=== PATIENT | female | born 1950 | race Caucasian/White ===

== ENCOUNTER → 2018-01-26 | Outpatient (CLI) | payer BC | LOC: BRMIMAGING 09:43 | PROVIDERS: ATTEND Internal Medicine Endocrinology, Diabetes & Metabolism | DX: Z13.820 Encounter for screening for osteoporosis (principal); M81.0 Age-related osteoporosis without current pathological fracture ==

== ENCOUNTER → 2018-02-12 | Outpatient (CLI) | payer BC | LOC: FIMAGING 13:10 | PROVIDERS: ATTEND Internal Medicine Endocrinology, Diabetes & Metabolism | DX: R94.6 Abnormal results of thyroid function studies (principal); E83.52 Hypercalcemia | CPT/HCPCS: 78070; A9500 ==

== ENCOUNTER → 2018-02-21 | Outpatient (CLI) | payer BC ==
[~2018-02-21] MED LIST: GADOBUTROL 10 ML VIAL IVP ONE
== END ==
LOC: FIMAGING 07:26
PROVIDERS: ATTEND Internal Medicine Endocrinology, Diabetes & Metabolism
DX: D43.2 Neoplasm of uncertain behavior of brain, unspecified (principal); G93.9 Disorder of brain, unspecified
CPT/HCPCS: A9585

== ENCOUNTER → 2018-03-02 | Outpatient (CLI) | payer BC | LOC: BRMIMAGING 14:56 | PROVIDERS: ATTEND Internal Medicine Endocrinology, Diabetes & Metabolism | DX: I80.01 Phlebitis and thrombophlebitis of superficial vessels of right lower extremity (principal) | CPT/HCPCS: 93971-PO ==

== ENCOUNTER 2018-03-26 07:09 | Inpatient (IN) | payer BC ==
[2018-03-26] MEDS ORDERED: ACETAMINOPHEN 500 MG TAB PO ONE (07:28)
[2018-03-26] MEDS ORDERED: ceFAZolin 2 GM/SWFI 2 GM/20 ML SYR IVP ONE (07:28)
[2018-03-26] MEDS ORDERED: DEXAMETHASONE 10 MG/ML VIAL IVP ONE ×2 (07:28→09:45)
[2018-03-26] MEDS ORDERED: LIDOCAINE 1% 2 ML INJ ID PRN (08:35)
[2018-03-26] MEDS ORDERED: LR 1,000 ML IV ONE (08:35)
[2018-03-26 09:05] LABS: PLATELET COUNT 168 10^3/uL (150-400)
[2018-03-26] MEDS ORDERED: GADOBUTROL 10 ML VIAL IVP ONE (09:35)
[2018-03-26] MEDS ORDERED: ACETAMINOPHEN 500 MG TAB ONE (13:10)
[2018-03-26] MEDS: FAMOTIDINE 20 MG TAB PO SCH (13:12)
[2018-03-26] MEDS ORDERED: THROMBIN (BOVINE) 5,000 UNIT VIAL TP ONE ×2 (15:13→18:06)
[2018-03-26] MEDS ORDERED: CHLORHEXIDINE GLUC HIBICLENS 118 ML BTL TP ONE (15:13)
[2018-03-26] MEDS ORDERED: BACITRACIN ZINC 14.2 GM OINTTUBE TP ONE (15:13)
[2018-03-26] MEDS ORDERED: BUPIVACAINE 0.25% 30 ML SDV ONE (15:13)
[2018-03-26] MEDS ORDERED: SURGIFLO MATRIX KIT WITH THROMBIN 8 ML TP ONE ×2 (15:13→18:03)
[2018-03-26] MEDS ORDERED: MANNITOL 20% 100 GM/500 ML BAG IV ONE (15:13)
[2018-03-26] MEDS ORDERED: GENTAMICIN SULFATE 80 MG/2 ML VIAL ONE ×3 (15:14→18:52)
[2018-03-26] MEDS ORDERED: HYDROGEN PEROXIDE 473 ML BOTTLE TP ONE (15:14)
[2018-03-26] MEDS ORDERED: AVITENE POWDER 1 GM JAR TP ONE (15:14)
[2018-03-26] MEDS ORDERED: POVIDONE-IODINE 30 GM OINTTUBE TP ONE (15:14)
--- NOTE | 2018-03-26 16:03 | PDANEPAE ---
ANE History of Present Illness 67 yo with frontal tumor ANE Past Medical History - Cardiovascular History Hx Hypertension: No Hx Arrhythmias: No Hx Chest Pain: No Hx Coronary Artery / Peripheral Vascular Disease: No Hx CHF / Valvular Disease: No Hx Palpitations: No - Pulmonary History Hx COPD: No Hx Asthma/Reactive Airway Disease: Yes Hx Recent Upper Respiratory Infection: No Hx Oxygen in Use at Home: No Hx Sleep Apnea: No Sleep Apnea Screening Result - Last Documented: Negative - Neurologic History Hx Cerebrovascular Accident: No Hx Seizures: No Hx Dementia: No - Endocrine History Hx Diabetes: No - Renal History Hx Renal Disorders: No - Liver History Hx Hepatic Disorders: No - Neurological & Psychiatric Hx Hx Neurological and Psychiatric Disorders: Yes Neurological / Psychiatric History Comment: DEPRESSION,ANXIETY - Cancer History Hx Cancer: Yes Cancer History Comment: SKIN,BILAT MASTECTOMY WITH LYMPH NODE REMOVAL ON RIGHT. - Congenital Disorder History Hx Congenital Disorders: No - GI History Hx Gastrointestinal Disorders: No - Other Health History Other Health History: RIGHT EAR PAIN RADIATES TO JAW. - Chronic Pain History Chronic Pain: No - Surgical History Prior Surgeries: BILAT MASTECTOMY,BACK FLAP SURGERY,. TORE ONE FLAP. RE- ATACHED BACK FLAP. SINUS SX,. SKIN CA REMOVED ANE Review of Systems Review of systems is: negative Review of Systems: - Exercise capacity METS (RN): 4 METS ANE Patient History - Allergies Allergies/Adverse Reactions: aspirin Allergy (Verified 03/22/18 17:21) Abdominal Pain azithromycin Allergy (Verified 03/22/18 17:21) Hives - Home Medications Home Medications: Alendronate Sodium [Fosamax 70 MG (*)] 70 mg PO FR@0700 03/25/18 [Last Taken Unknown] Escitalopram Oxalate [Lexapro] 30 mg PO DAILY 03/25/18 [Last Taken Unknown] Fexofenadine HCl [Marlena Allergy] 60 mg PO DAILY 03/25/18 [Last Taken Unknown] Herbals/Supplements -Info Only 1 ea PO DAILY 03/25/18 [Last Taken Unknown] Levothyroxine [Synthroid 75 mcg (*)] 75 mcg PO SUMOTUWETH@03/25/18 [Last Taken Unknown] Levothyroxine [Synthroid 75 mcg (*)] 150 mcg PO WARREN@03/25/18 [Last Taken Unknown] Olopatadine HCl [Pazeo] 1 drop EACHEYE DAILY 03/25/18 [Last Taken Unknown] buPROPion XL [Wellbutrin Xl] 150 mg PO DAILY 03/25/18 [Last Taken Unknown] valACYclovir [Valtrex (*)] 500 mg PO DAILY 03/25/18 [Last Taken Unknown] - NPO status NPO Status: no food or drink >8 hours NPO Since - Liquids (Date): 03/25/18 NPO Since - Liquids (Time): 20:30 NPO Since - Solids (Date): 03/25/18 NPO Since - Solids (Time): 19:30 - Smoking Hx Smoking Status: Never smoked - Alcohol Use Alcohol Use: None - Family Anes Hx Family Hx Anesthesia Complications: NONE ANE Labs/Vital Signs - Labs Result Diagrams: 03/26/18 08:50 - Vital Signs Blood Pressure: 107/69 Heart Rate: 69 Respiratory Rate: 16 O2 Sat (%): 93 Height: 162.56 cm Weight: 63.503 kg ANE Physical Exam - Airway Neck exam: FROM Mallampati Score: Class 1 Mouth exam: normal dental/mouth exam - Pulmonary Pulmonary: no respiratory distress - Cardiovascular Cardiovascular: regular rate and rhythym - ASA Status ASA Status: II ANE Anesthesia Plan Anesthesia Plan: general endotracheal anesthesia
--- NOTE | 2018-03-26 16:35 | PDHPUP ---
History & Physical Update H&P update statement: This history and physical update is based on an assessment of the patient which was completed after admission or registration (within 24 hours), but prior to the surgery/procedure. H&P update: H&P reviewed & patient examined, no change in patient's condition since H&P completed
[2018-03-26] MEDS ORDERED: fentaNYL 100 MCG/2 ML INJ ONE (16:37)
[2018-03-26] MEDS ORDERED: PROPOFOL 200 MG/20 ML VIAL ONE ×2 (16:37→19:09)
[2018-03-26] MEDS ORDERED: fentaNYL 250 MCG/5 ML INJ ONE (16:51)
[2018-03-26] MEDS ORDERED: DESFLURANE 240 ML BOTTLE IH ONE (17:31)
--- NOTE | 2018-03-26 21:03 | GOP ---
[f rep st] OPERATIVE REPORT DATE OF OPERATION: 03/26/2018 SURGEON: Erich Riddle MD NEUROSURGEON: Erich Riddle MD. SCHOOL LABORATORY TECHNICIAN: GEORGE Bae. ANESTHESIA: General endotracheal. PREOPERATIVE DIAGNOSIS: Large right frontal meningioma. POSTOPERATIVE DIAGNOSIS: Large right frontal meningioma. PROCEDURE PERFORMED: 1. Right frontotemporal craniotomy. 2. Microsurgical gross total resection of a 6 cm right frontal meningioma. 3. Use of the operative microscope. 4. Stealth stereotactic neuronavigation for volumetric gross total resection of brain tumor. FINDINGS: SPECIMENS: Right frontal meningioma. ESTIMATED BLOOD LOSS: 300 cc. INDICATIONS: The patient is a 67-year-old woman who presented with an incidentally found 6 cm right frontal convexity meningioma. She was not having any clear symptoms but given the tumor size, I did recommend resection. She presents electively today for this procedure. DESCRIPTION OF PROCEDURE: After informed consent was obtained from the patient, the patient was brou ght to the operating room, was placed in a supine position on the operating table. A formal time-out was performed, identifying the patient by name, medical record number and date of . Preoperati ve antibiotics were given. The endotracheal tube was placed and general endotracheal anesthesia was smoothly induced. The patient's head was placed in the Pollock pins and turned slightly toward the left side. The Stealth was registered to the scalp and checked for accuracy using known surface land bee. The Stealth was then used to localize the area of the tumor and a large slightly angled poste rior pterional style craniotomy incision was marked. 20 cc of 0.25% Marcaine with epinephrine was in filtrated in the skin for hemostasis. The head was then prepped and draped in normal sterile fashion . A skin incision was made using a 10 blade, and the subcutaneous tissues were dissected using monop olar electrocautery. Preston clips were placed for hemostasis. The galea was opened around the circum ference of the incision, and the loose connective tissue between the temporalis muscle and the skin w as carefully dissected, reflecting the flap anteriorly. The Stealth was then used to again localize the area of the tumor and this did come under the temporalis somewhat, so the temporalis was opened a nd taken down from the superior temporal line. Once we had enough exposure, a bur hole was created a t the keyhole as well as 1 posteriorly beneath the superior temporal line and 1 bur hole was created on the coronal suture superiorly. The craniotome was then used to turn a roughly 8 cm craniotomy fla p, encompassing around the area of the tumor. After the bone was removed, copious bleeding was seen from the middle meningeal artery, which was the blood supply to the tumor. This was coagulated using bipolar electrocautery. There was still a fair amount of bleeding from the tumor which appeared to have parasitized some of the cortical vessels on the MRI. At this point, the dura was opened posteri magdiel and the dura was then carefully cut around the entire circumference of the tumor, removing about 1 cm margins from the edge of the tumor. The dura was tied together and the edges were coagulated, which stopped the majority of the bleeding. The operative microscope was then brought into the field and the remainder of procedure was performed under high-power magnification. We began by dissecting the arachnoid planes around the circumference of the tumor where it met the cortex. These planes we re fairly well dissected below at the superficial surface. The tumor was from the underlyi ng brain with cottonoid patties. Once we were dissecting a bit deeper, the tumor capsule was opened and the ultrasonic aspirator was used to internally debulk the tumor completely. We then continued t he arachnoid dissection, although this was a bit difficult due to some copious bleeding from the port ion of the tumor which was supplied by the parasitized cortical vessels. These were carefully coagul ated without disturbing the normal vasculature to the cortex and divided. We were able to dissect ar ound the entire circumference of the tumor in this manner, and the remainder of the tumor was removed en bloc. A few small bleeders from the cortex were coagulated using bipolar electrocautery. The wo und was then copiously irrigated using gentamicin irrigation and the cortex was inspected. No clear damage to the cortex or its vessels was visualized. Therefore, the cavity was then lined with Surgic el. At this point, the opening was copiously irrigated using gentamicin irrigation. The dural defec t was closed using an Integra bovine pericardium graft in a watertight fashion. At this point, the b one flap was plated back in place using Synthes titanium plates and screws. The temporalis muscle an d its fascia were closed using interrupted 2-0 Vicryl. The 10-Lebanese DARYL drain was placed in the subg aleal space, and the galea was closed using interrupted 2-0 Vicryl. The skin was closed using a runn ing 4-0 Monocryl. Sterile dressings were placed. The patient was awakened in the operating room. S he was extubated and was transferred to the PACU in stable condition. There were no operative compli cations. I was scrubbed and present for the entire procedure. All sponge and needle counts were cor rect at the end of the case. FLUIDS AND URINE OUTPUT: Per the anesthesia record. DRAINS: A subgaleal DARYL. /[id number]/MODL
[2018-03-26] MEDS ORDERED: oxyCODONE IR 5 MG TAB PO PRN (21:06)
[2018-03-26] MEDS ORDERED: ONDANSETRON 4 MG/2 ML VIAL IVP PRN (21:06)
[2018-03-26] MEDS ORDERED: ONDANSETRON 4 MG/2 ML VIAL ONE (21:17)
[2018-03-26] MEDS ORDERED: MAGNESIUM HYDROXIDE 30 ML UDCUP PO PRN (21:26)
[2018-03-26] MEDS ORDERED: niCARdipine/NACL 200 ML IV PRN (21:26)
[2018-03-26] MEDS ORDERED: PROMETHAZINE HCL 25 MG/ML INJ IVP PRN (21:26)
[2018-03-26] MEDS ORDERED: BISACODYL 10 MG SUPP PR PRN (21:26)
[2018-03-26] MEDS ORDERED: ONDANSETRON DISINTEGRATING 4 MG TAB PO PRN (21:26)
[2018-03-26] MEDS ORDERED: HYDROCODONE/APAP 5/325 TAB PO PRN (21:26)
[2018-03-26] MEDS ORDERED: diphenhydrAMINE 25 MG CAP PO PRN (21:26)
[2018-03-26] MEDS ORDERED: POLYETHYLENE GLYCOL 3350 17 GM PKT PO PRN (21:26)
[2018-03-26] MEDS ORDERED: LACTULOSE 20 GM/30 ML UDCUP PO PRN (21:26)
[2018-03-26] MEDS ORDERED: NS W/ 20 KCl/L 1,000 ML IV SCH (21:30)
[2018-03-26] MEDS ORDERED: *MD ORDERING ONLY-DEXAMETHASONE TAPER PO SCH (21:30)
--- NOTE | 2018-03-26 21:59 | POSTOPPROG ---
Post Op Note Date of Operation: 03/26/18 Surgeon: Erich Riddle Product Marketing Coordinator: Tiny Karimi Anesthesia: GET(General Endotracheal) Pre-op Diagnosis: Right frontal brain mass Post-op Diagnosis: same Procedure: Right frontal craniotomy for resection of right frontal brain mass Inf/Abcess present in the surg proc area at time of surgery?: No Depth: Organ Space EBL: 100-500 Drains: Jed Velez (DARYL Subgaleal) SOAP Progress Note Assessment/Plan: Assessment: Plan: 03/26/18 21:54 S: Patient in SDU. Waking up from surgery O: NAD,VSS FOllowing commands, speech fluent CN II-XII grossly intact PERRL, EOMI POWERS X 4 equally Incision c/d/i DARYL X 1 to full suction A: 67 yo female sp right frontal craniotomy for resection of large right frontal brain mass. Suspected meningioma P: -Admit to SDU -Q2 hours neuro checks -SBP < 140 -Postop MRI in am -7 day Decadron taper starting at 4mg q6 -PT/OT/MEDICINE AND HEALTH SERVICE MANAGER -May shower tomorrow -DARYL Subgaleal to full suction -DVT: TEDs, SCDs, Subq Hep POD #2 if still in house Objective: Vital Signs Temp Pulse Resp BP Pulse Ox 37.2 C 90 12 97/56 L 100 03/26/18 20:35 03/26/18 21:00 03/26/18 21:00 03/26/18 21:00 03/26/18 21:00 Laboratory Results 03/26/18 16:40 03/25/18 03/26/18 03/27/18 05:59 05:59 05:59 Output Total 110 Balance -110
[2018-03-26] MEDS: ACETAMINOPHEN 325 MG TAB PO PRN (23:03)
[2018-03-26] MEDS: DEXAMETHASONE 4 MG TAB PO SCH (23:04)
[2018-03-27] MEDS ORDERED: POTASSIUM Cl (KCl) 20 MEQ in NS 1,000 ML IV SCH (01:00)
[2018-03-27] MEDS: LEVOTHYROXINE 75 MCG TAB PO SCH (05:16)
[2018-03-27] MEDS: DEXAMETHASONE 4 MG TAB PO SCH ×4 (05:16→21:27)
[2018-03-27] MEDS: ALBUTEROL 60 PUFFS/8 GM MDI IH PRN ×3 (06:20→21:27)
--- NOTE | 2018-03-27 08:36 | PDMN ---
Medical Necessity Medical necessity: [facility] [place] [id number] crani[place], supratentorial 3 days : R frontotemporal craniotomy, Microsurgical gross total resection of 6 cm R frontal meningioma..
[2018-03-27] MEDS ORDERED: valACYclovir 500 MG TAB PO SCH (09:00)
[2018-03-27] MEDS ORDERED: buPROPion XL 150 MG TAB PO SCH (09:00)
[2018-03-27] MEDS ORDERED: ESCITALOPRAM OXALATE 10 MG TAB PO SCH (09:00)
[2018-03-27] MEDS ORDERED: OLOPATADINE HCL EACHEYE SCH (09:00)
[2018-03-27] MEDS: ACETAMINOPHEN 325 MG TAB PO PRN ×2 (09:26→21:30)
[2018-03-27] MEDS: SENNOSIDES/DOCUSATE SODIUM TAB PO SCH ×2 (09:28→21:27)
[2018-03-27] MEDS: FAMOTIDINE 20 MG TAB PO SCH (09:28)
--- NOTE | 2018-03-27 09:31 | NEUSURGPN ---
Assessment/Plan: A: 67 yo female sp right frontal craniotomy for resection of large right frontal brain mass. Suspected meningioma POD1 P: -Continue Q2 hours neuro checks -SBP < 140 -Postop MRI pending -7 day Decadron taper starting at 4mg q6 -PT/OT/CW OPERATOR -Okay to shower today -DARYL Subgaleal to full suction -DVT: TEDs, SCDs, Subq Hep POD #2 if still in house -Discussed with Dr. Riddle Subjective: Mild headache Objective: NAD A&Ox3 CN II-XII grossly intact PERRL, EOMI POWERS X 4 equal in BUE and BLE Incision c/d/i DARYL X 1 to full suction Catheter Insertion Date: 03/26/18 - Physician Discussed Patient with : Venkatesh Neurosurgery Physical Exam - Vitals, I&O, Labs I and O 03/26/18 03/27/18 03/28/18 05:59 05:59 05:59 Intake Total 1150 Output Total 565 Balance 585 Weight 63.503 kg Intake: Oral (ml) 350 IV Infused (ml) 800 NS W/ 20 KCl/L 1,000 ml @ 800 100 mls/hr IV CONT MAGDA Rx#:[id number] Output: Urine (ml) 350 Catheter 350 DARYL Drain Output (ml) 215 #1 Head 215 Vital Signs Temp Pulse Resp BP Pulse Ox 36.8 C 73 15 102/62 95 03/27/18 07:59 03/27/18 07:59 03/27/18 07:59 03/27/18 07:59 03/27/18 07:59 Laboratory Results 03/26/18 16:40 ICD10 Worksheet Patient Problems: Problems Problem Status Onset Mass, brain Acute - ICD10 Problem Qualifiers (1) Mass, brain
[2018-03-27] MEDS ORDERED: GADOBUTROL 10 ML VIAL IVP ONE (11:38)
--- NOTE | 2018-03-27 16:32 | ASMTCMCOM ---
CM Note CM Note Notes: 67yr old female admitted for R Frontal Meningioma. Patient went to surgery for a resection. Therapies have evaluated and found patient to have no Therapy needs. Patient lives with her . Date Signed: 03/27/2018 04:31 PM Electronically Signed By:Nisreen Green LCSW
[2018-03-28] MEDS: ACETAMINOPHEN 325 MG TAB PO PRN (02:12)
[2018-03-28] MEDS: DEXAMETHASONE 4 MG TAB PO SCH (04:00)
[2018-03-28] MEDS: LEVOTHYROXINE 75 MCG TAB PO SCH (05:50)
[2018-03-28 05:53] VITALS: BP 124/68
--- NOTE | 2018-03-28 07:41 | SOAPPROG ---
SOAP Progress Note Assessment/Plan: Assessment: 67 yo female POD #2 s/p right frontal crani for resection of meningioma Post op MRI shows good resection patient doing well, no deficits Plan: Sub galeal DARYL removed today DC home today on decadron taper follow up with Dr. Riddle in 10-[address] Riddle 03/28/18 07:38 03/28/18 07:40 Subjective: awake, alert, feeling fine, no overnight issues per RN Objective: Vital Signs Temp Pulse Resp BP Pulse Ox 36.8 C 81 20 124/68 H 91 L 03/28/18 04:00 03/28/18 04:00 03/28/18 04:00 03/28/18 04:00 03/28/18 04:00 Laboratory Results 03/26/18 16:40 03/27/18 03/28/18 03/29/18 05:59 05:59 05:59 Intake Total 1150 2271 Output Total 565 194 Balance 585 2077 Incision: CDI Neuro: POWERS, sens +LT speech clear, PERRLA, EOMI no facial droop, no pronator drift equal strength throughout independant in room ICD10 Worksheet Patient Problems: Problems Problem Status Onset Mass, brain Acute
[2018-03-28] MEDS ORDERED: HEPARIN 5,000 UNIT/0.5 ML SYR SC SCH (09:00)
[2018-03-28] MEDS ORDERED: DEXAMETHASONE 4 MG TAB PO SCH (22:00)
[2018-03-30] MEDS ORDERED: ALENDRONATE SODIUM 70 MG TAB PO SCH (07:00)
[2018-03-30] MEDS ORDERED: DEXAMETHASONE 2 MG TAB PO SCH (22:00)
[2018-04-01] MEDS ORDERED: LEVOTHYROXINE 75 MCG TAB PO SCH (06:00)
[2018-04-01] MEDS ORDERED: DEXAMETHASONE 2 MG TAB PO SCH (22:00)
== END 2018-03-28 08:55 | disposition home or self-care (01) | DRG 27 ==
LOC: F3N 07:09 → F2N 14:56
PROVIDERS: ADMIT Neurological Surgery; ATTEND Neurological Surgery
PROC: 4A1004G Monitoring of Central Nervous Electrical Activity, Intraoperative, Open Approach (ICD-10-PCS; principal; 2018-03-26 13:45)
PROC: 00B10ZX Excision of Cerebral Meninges, Open Approach, Diagnostic (ICD-10-PCS; principal; 2018-03-26 13:45)
PROC: 8E09XBZ Computer Assisted Procedure of Head and Neck Region (ICD-10-PCS; principal; 2018-03-26 13:45)
DX: D32.0 Benign neoplasm of cerebral meninges (principal); J45.909 Unspecified asthma, uncomplicated; Z85.3 Personal history of malignant neoplasm of breast; Z90.13 Acquired absence of bilateral breasts and nipples
CPT/HCPCS: 92523-GN; 97161-GP; 97165-GO; A9585; C1713; C1763; J0171; J0690; J1100; J1580; J2270; J2405; J2704; J3010; J3480

== ENCOUNTER → 2019-05-06 | Outpatient (CLI) | payer BC | LOC: FIMAGING 10:03 ==